=== PATIENT | male | born 1945 | race Two or more races ===

== ENCOUNTER → 2016-12-17 | Outpatient (CLI) | payer BC, MEDICARE ==
--- NOTE | 2016-12-17 14:25 | REP ---
Chest two views HISTORY: Cough Comparison: 07/05/2016 The lungs are clear. The cardiac silhouette is enlarged. The pulmonary vasculature is normal in appearance. The bony structure is intact. A cardiac pacemaker is present. IMPRESSION: Cardiomegaly.
== END ==
LOC: M CLY 13:52
PROVIDERS: ATTEND Family Medicine
DX: R05 Cough (principal); I51.7 Cardiomegaly

== ENCOUNTER → 2017-02-04 | Outpatient (REF) | payer MEDICARE ==
[2017-02-04 16:52] LABS: ALBUMIN 3.9 GM/DL (3.2-5.2); ALKALINE PHOSPHATASE 109 U/L (45-117); ALT/SGPT 28 U/L (12-78); ANION GAP 3 MEQ/L (8-16); AST/SGOT 18 U/L (15-37); BILIRUBIN,TOTAL 0.8 MG/DL (0.2-1.0); BLOOD UREA NITROGEN 17 MG/DL (7-18); CALCIUM LEVEL 8.9 MG/DL (8.8-10.2); CARBON DIOXIDE LEVEL 33 MEQ/L (21-32); CHLORIDE LEVEL 106 MEQ/L (98-107); CHOLESTEROL LEVEL 167 MG/DL (<200); CREATININE FOR GFR 0.83 MG/DL (0.70-1.30); GLOMERULAR FILTRATION RATE > 60.0 (>42); GLUCOSE, FASTING 117 MG/DL (83-110); POTASSIUM SERUM 4.2 MEQ/L (3.5-5.1); SODIUM LEVEL 142 MEQ/L (136-145); TOTAL PROTEIN 6.9 GM/DL (6.4-8.2); TRIGLYCERIDES LEVEL 119 MG/DL (<150)
== END ==
LOC: M SFHCCLAY 11:04
PROVIDERS: ATTEND Family Medicine
DX: E78.2 Mixed hyperlipidemia (principal); R73.01 Impaired fasting glucose; N13.8 Other obstructive and reflux uropathy; N40.1 Benign prostatic hyperplasia with lower urinary tract symptoms
CPT/HCPCS: 80053; 80061; 83036; G0103; G0463

== ENCOUNTER → 2017-07-19 | Outpatient (CLI) | payer MEDICARE ==
--- NOTE | 2017-07-19 12:39 | REP ---
Chest two views HISTORY: Cough Comparison: 12/17/1969 The lungs are clear. The cardiac silhouette is enlarged. The pulmonary vasculature is normal in appearance. The bony structure is intact. A cardiac pacemaker is present. IMPRESSION: Cardiomegaly.
== END ==
LOC: M CLY 11:43
PROVIDERS: ATTEND Family Medicine
DX: R05 Cough (principal); I51.7 Cardiomegaly
CPT/HCPCS: 71020; 80053; 85025; 87804; G0463

== ENCOUNTER → 2017-07-19 | Outpatient (REF) | payer MEDICARE ==
[2017-07-19 17:14] LABS: ALBUMIN 3.7 GM/DL (3.2-5.2); ALBUMIN/GLOBULIN RATIO 1.32 (1.00-1.93); ALKALINE PHOSPHATASE 110 U/L (45-117); ALT/SGPT 25 U/L (12-78); ANION GAP 6 MEQ/L (8-16); AST/SGOT 14 U/L (15-37); BILIRUBIN,TOTAL 0.7 MG/DL (0.2-1.0); BLOOD UREA NITROGEN 15 MG/DL (7-18); CARBON DIOXIDE LEVEL 30 MEQ/L (21-32); CHLORIDE LEVEL 105 MEQ/L (98-107); CREATININE FOR GFR 0.88 MG/DL (0.70-1.30); GLOMERULAR FILTRATION RATE > 60.0 (>42); GLUCOSE, FASTING 94 MG/DL (83-110); POTASSIUM SERUM 4.4 MEQ/L (3.5-5.1); SODIUM LEVEL 141 MEQ/L (136-145); TOTAL PROTEIN 6.5 GM/DL (6.4-8.2)
[2017-07-19 17:36] LABS: BASO % 0.2 % (0.0-1.0); EOS # 0.4 10^3/uL (0.0-0.50); EOS % 3.5 % (0.0-3.0); LYMPH # 1.9 10^3/uL (1.5-4.5); LYMPH % 19.5 % (24.0-44.0); MEAN CORPUSCULAR HEMOGLOBIN 31.7 pg (27.0-33.0); MEAN CORPUSCULAR VOLUME 93.1 fl (80.0-96.0); MONO % 10.1 % (0.0-5.0); NEUTROPHILS # 6.5 10^3/uL (1.8-7.7); NEUTROPHILS % 65.7 % (36.0-66.0); PLATELET COUNT, AUTOMATED 173 10^3/uL (150-450); WHITE BLOOD COUNT 9.9 10^3/uL (4.0-10.0)
== END ==
LOC: M SFHCCLAY 11:40
PROVIDERS: ATTEND Family Medicine
DX: R05 Cough (principal)

== ENCOUNTER → 2017-11-28 | Outpatient (CLI) | payer MEDICARE | LOC: M SLEEP 19:20 | DX: G47.33 Obstructive sleep apnea (adult) (pediatric) (principal) | CPT/HCPCS: 95811 ==

== ENCOUNTER 2019-03-01 05:44 | Inpatient (IN) | payer MEDICARE, OTHER ==
[~2019-03-01] VITALS: Ht 172.7 cm; Wt 120.8 kg
[2019-03-01] MEDS ORDERED: RAMI1CAP26 PO (06:00)
[2019-03-01] MEDS ORDERED: AMLO5TAB6 PO (06:00)
[2019-03-01] MEDS ORDERED: CIDA500T2 PO (06:00)
[2019-03-01] MEDS ORDERED: ASPI81CH33 PO (06:00)
[2019-03-01] MEDS ORDERED: SIMV10TA2 PO (06:00)
[2019-03-01] MEDS ORDERED: TAMS1CAP17 PO (06:00)
[2019-03-01] MEDS ORDERED: CARV25TA PO (06:00)
[2019-03-01 06:27] LABS: BASO # 0.1 10^3/uL (0.0-0.2); BASO % 0.7 % (0.0-1.0); EOS # 0.1 10^3/uL (0.0-0.50); EOS % 0.9 % (0.0-3.0); HEMATOCRIT 38.3 % (42.0-52.0); HEMOGLOBIN 13.2 g/dl (13.5-17.5); LYMPH # 1.1 10^3/uL (1.5-4.5); LYMPH % 12.7 % (24.0-44.0); MEAN CORPUSCULAR HEMOGLOBIN 31.8 pg (27.0-33.0); MEAN CORPUSCULAR HGB CONC 34.5 g/dl (32.0-36.5); MEAN CORPUSCULAR VOLUME 92.3 fl (80.0-96.0); MONO # 0.7 10^3/uL (0.0-0.8); MONO % 8.4 % (0.0-5.0); NEUTROPHILS # 6.5 10^3/uL (1.8-7.7); NEUTROPHILS % 76.7 % (36.0-66.0); PLATELET COUNT, AUTOMATED 143 10^3/uL (150-450); RED BLOOD COUNT 4.15 10^6/uL (4.30-6.10); WHITE BLOOD COUNT 8.5 10^3/uL (4.0-10.0)
[2019-03-01 07:08] LABS: ALBUMIN 3.7 GM/DL (3.2-5.2); ALT/SGPT 50 U/L (12-78); BILIRUBIN,DIRECT 0.5 MG/DL (0.0-0.2); BLOOD UREA NITROGEN 19 MG/DL (7-18); CALCIUM LEVEL 8.7 MG/DL (8.8-10.2); CARBON DIOXIDE LEVEL 25 MEQ/L (21-32); CHLORIDE LEVEL 108 MEQ/L (98-107); CPK CREATINE PHOSPHOKINASE 139 U/L (39-308); CREATININE FOR GFR 0.96 MG/DL (0.70-1.30); GLOMERULAR FILTRATION RATE > 60.0 (>42); GLUCOSE, FASTING 171 MG/DL (70-100); LIPASE 18476 U/L (73-393); MB/CK RELATIVE INDEX 0.94 (< OR =4); POTASSIUM SERUM 4.1 MEQ/L (3.5-5.1); SODIUM LEVEL 142 MEQ/L (136-145); TOTAL PROTEIN 6.2 GM/DL (6.4-8.2); TROPONIN I < 0.02 NG/ML (< 0.10)
[2019-03-01] MEDS ORDERED: NS 1,000 ML IV ONE (07:30)
--- NOTE | 2019-03-01 07:46 | REP ---
Clinical: Abdominal pain. Comparison: 07/19/2017. Findings: Mediastinum and cardiac silhouette are stable with pacemaker again identified. Trace left basilar fibroatelectatic changes noted. No consolidation, effusion, or pneumothorax. Skeletal structures intact. Impression: Cannot exclude trace left basilar fibroatelectatic change. Electronically Signed by Carlos Cook MD 03/01/2019 07:38 A
[2019-03-01] MEDS ORDERED: ISOVUE-370 76% 100ML VIAL (Q9967) As Ordered ONE (07:50)
--- NOTE | 2019-03-01 08:20 | REP ---
Clinical: Abdominal pain with elevated lipase levels. Technique: Axial contrast enhanced images from the lung bases to the pubic symphysis with coronal and sagittal re-formations using 100 ml Isovue 370 intravenous contrast material. Findings: Moderate peripancreatic inflammatory stranding is consistent with acute pancreatitis. No drainable collection/abscess or pseudocyst noted. The gallbladder demonstrates small amount of gravel without pericholecystic fluid to suggest acute cholecystitis. Liver demonstrates diffuse fatty infiltration. Spleen, bilateral adrenal glands and kidneys are normal. Enteric system is without obstruction or acute inflammatory process. Normal terminal ileum and appendix identified in the right lower quadrant. Few scattered sigmoid diverticula noted without acute diverticulitis. Pelvis demonstrates normal bladder and mildly prominent prostate gland. No ascites. No free air. No retroperitoneal adenopathy. Abdominal aorta without aneurysm or dissection. Musculoskeletal structures demonstrate degenerative changes without focal osseous abnormality. Lung bases demonstrate minimal left basilar atelectasis. Impression: 1. Acute Pancreatitis. No drainable collection/abscess or pseudocyst. 2. Small amount of gravel in the gallbladder without evidence for acute cholecystitis. 3. Hepatic steatosis. Electronically Signed by Carlos Cook MD 03/01/2019 08:12 A
--- NOTE | 2019-03-01 08:40 | REP ---
Clinical: Pancreatitis. Technique: Real time loredo scale ultrasound examination using curved array transducer. Findings: The gallbladder demonstrates small mobile gallstones and a small amount of pericholecystic fluid cannot definitively be excluded. No wall thickening or definite biliary ductal dilatation is appreciated. However, the common bile duct is identified measuring up to 6.1 mm and there are suggestions for a 5.5 mm choledocholith. There is fatty infiltration to the liver noted without focal hepatic lesion. The pancreas is incompletely evaluated due to interposed bowel gas. The right kidney demonstrates increased central sinus fat consistent with age-related changes and measures 12.0 x 6.1 x 5.6 cm without hydronephrosis. No ascites. Impression: 1. Cholelithiasis and possible choledochal with. Very minimal pericholecystic fluid cannot be excluded. 2. Hepatic steatosis. Electronically Signed by Carlos Cook MD 03/01/2019 08:32 A
[2019-03-01] MEDS ORDERED: CART1TAB2 PO (08:46)
[2019-03-01] MEDS ORDERED: PEPC1TAB5 PO (08:46)
[2019-03-01] MEDS ORDERED: PEPT262C2 PO (08:46)
[2019-03-01] MEDS ORDERED: ASPI81TA26 PO (08:46)
[2019-03-01] MEDS ORDERED: MULTCAP PO (08:46)
[2019-03-01] MEDS ORDERED: LR 1,000 ML IV SCH ×2 (09:45→13:45)
[2019-03-01] MEDS ORDERED: ACETAMINOPHEN TAB 650MG DOSE (2X325MG) PO PRN (09:45)
--- NOTE | 2019-03-01 10:08 | ECGEPIP ---
[facility] - ED Test Date: 2019-03-01 Pat Name: SHAWN CLINE Department: Room: - Gender: Male Asset Analyst: gokul : 1945 Requested By: Analilia Keenan Order Number: [id number] Reading MD: Analilia Keenan Measurements Intervals [place] Rate: 77 P: 15 MA: 161 QRS: 260 QRSD: 155 T: QT: 416 QTc: 473 Interpretive Statements ELECTRONIC VENTRICULAR PACEMAKER MARKED ST DEPRESSION, CONSIDER SUBENDOCARDIAL INJURY CW 07/06/[address] T WAVE CHAGNES Electronically Signed on 03-01-2019 10:08:11 EDT by Analilia Keenan
[2019-03-01] MEDS: MEROPENEM INJ 1 GM in APPROPRIATE DILUENT 1 EA IV SCH ×2 (10:10→17:40)
[2019-03-01] MEDS ORDERED: PROPOFOL 200 MG/20 ML VIAL As Ordered ONE (11:48)
[2019-03-01] MEDS ORDERED: LIDOCAINE 2% INJ 100 MG/5 ML SDV (FOR ANES.) As Ordered ONE (11:48)
[2019-03-01] MEDS ORDERED: ONDANSETRON 4MG/2ML VIAL (J2405) As Ordered ONE (11:49)
[2019-03-01] MEDS ORDERED: dexameTHASONE 4 MG/ML 1ML VIAL (J1100) As Ordered ONE (11:49)
[2019-03-01] MEDS ORDERED: MIDAZOLAM INJ 2 MG/2 ML VIAL (J2250) As Ordered ONE (11:49)
[2019-03-01] MEDS ORDERED: ROCURONIUM BROMIDE 50 MG/5 ML VIAL As Ordered ONE (11:49)
[2019-03-01] MEDS ORDERED: SUGAMMADEX SODIUM 500 MG/5 ML VIAL (BRIDION) As Ordered ONE (11:49)
[2019-03-01] MEDS ORDERED: fentaNYL 100 MCG/2 ML INJECTION (J3010) As Ordered ONE (11:50)
[2019-03-01] MEDS ORDERED: GLUCAGON FOR INJ 1 MG VIAL (J1610) As Ordered ONE (12:03)
[2019-03-01] MEDS ORDERED: ISOVUE-300 61% 50ML VIAL (Q9967) As Ordered ONE (12:08)
--- NOTE | 2019-03-01 13:34 | REP ---
Clinical: ERCP. Technique: Intraoperative fluoroscopic imaging. Findings: Images from ERCP examination demonstrate relatively normal common bile duct and visualized portion of the cystic duct. Small filling defect in the distal common bile duct may represent small stones or air bubble. Total fluoroscopic time 1 minute 10 seconds. Impression: No significant obstructing choledocholiths identified. Electronically Signed by Carlos Cook MD 03/01/2019 01:26 P
--- NOTE | 2019-03-01 13:37 | ROOR ---
Patient Name: Dillon Aleman Procedure Date: 03/01/2019 12:27 PM Date of : 1945 Age: 73 Room: Main OR Gender: Male Note Status: Finalized Procedure: ERCP + Papillotomy + Balloon Sweep Indications: Abdominal pain of suspected biliary origin, Acute pancreatitis, For therapy of acute pancreatitis, Acute pancreatitis suspected due to gallstone Providers: Dillon Jurado MD Referring MD: 2. Inpatient 2. Inpatient Requesting Provider: Medicines: Monitored Anesthesia Care Complications: No immediate complications. Procedure: Pre-Anesthesia Assessment: - The heart rate, respiratory rate, oxygen saturations, blood pressure, adequacy of pulmonary ventilation, and response to care were monitored throughout the procedure. The Duodenoscope was introduced through the mouth, and advanced to the duodenum and used to inject contrast into the bile duct. The ERCP was accomplished without difficulty. The patient tolerated the procedure well. Findings: The upper GI tract was traversed under direct vision without detailed examination. The major papilla was normal. A short 0.035 inch Soft Jagwire was passed into the biliary tree. The short-nosed traction sphincterotome was passed over the guidewire and the bile duct was then deeply cannulated. Contrast was injected. I personally interpreted the bile duct images. Ductal flow of contrast was adequate. Image quality was adequate. Contrast extended to the entire biliary tree. The hepatic duct bifurcation was borderline dilated, uncertain etiology. Biliary sphincterotomy was made with a monofilament traction (standard) sphincterotome using ERBE electrocautery. There was no post-sphincterotomy bleeding. The biliary tree was swept with a 12 mm balloon starting at the bifurcation. Debris was swept from the duct. Impression: - The biliary system was borderline dilated, uncertain etiology. - A biliary sphincterotomy was performed. - The biliary tree was swept and debris was found. - The examination was otherwise normal. Recommendation: - Avoid aspirin and nonsteroidal anti-inflammatory medicines for 2 weeks. - Return patient to [facility] for [facility] care. - Watch for pancreatitis, bleeding, perforation, and cholangitis. - The findings and recommendations were discussed with the patient and their family. Dillon Jurado MD Dillon Jurado MD 03/01/2019 1:37:07 PM Electronically signed by Dillon Jurado MD Number of Addenda: 0 Note Initiated On: 03/01/2019 12:27 PM Estimated Blood Loss: Estimated blood loss: none.
[2019-03-01] MEDS ORDERED: NORCO, ANEXSIA 5/325MG TABLET (HYDROcodone/ACETAMINOPHEN) PO PRN (13:45)
[2019-03-01] MEDS ORDERED: ONDANSETRON 4MG/2ML VIAL (J2405) IV PRN (13:45)
[2019-03-01] MEDS ORDERED: fentaNYL 100 MCG/2 ML INJECTION (J3010) IV PRN (13:45)
[2019-03-01 14:20] VITALS: BP 133/82
[2019-03-01 16:00] VITALS: BP 173/81
[2019-03-01] MEDS ORDERED: FAMOTIDINE 20 MG TAB PO PRN (16:30)
[2019-03-01] MEDS: amLODIPine 5 MG TAB PO SCH (17:39)
[2019-03-01] MEDS: NS 1,000 ML IV SCH (17:39)
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
[2019-03-01 19:30] VITALS: BP 180/90
[2019-03-01] MEDS: CARVedilol 12.5 MG TAB PO SCH (20:01)
[2019-03-01] MEDS ORDERED: TAMSULOSIN 0.4 MG CAP PO SCH (21:00)
[2019-03-01] MEDS ORDERED: RAMIPRIL 5 MG CAP PO SCH (21:00)
[2019-03-01] MEDS ORDERED: SIMVASTATIN 10 MG TAB PO SCH (21:00)
[2019-03-01 21:50] VITALS: BP 150/80
[2019-03-01 23:59] VITALS: BP 160/74
[2019-03-02] MEDS: MEROPENEM INJ 1 GM in APPROPRIATE DILUENT 1 EA IV SCH ×2 (02:04→09:01)
[2019-03-02 04:00] VITALS: BP 159/79
[2019-03-02] MEDS: NS 1,000 ML IV SCH (04:26)
[2019-03-02 05:38] LABS: HEMATOCRIT 37.1 % (42.0-52.0); HEMOGLOBIN 12.6 g/dl (13.5-17.5); MEAN CORPUSCULAR HEMOGLOBIN 31.3 pg (27.0-33.0); MEAN CORPUSCULAR VOLUME 92.1 fl (80.0-96.0); PLATELET COUNT, AUTOMATED 155 10^3/uL (150-450); RED BLOOD COUNT 4.03 10^6/uL (4.30-6.10); WHITE BLOOD COUNT 8.9 10^3/uL (4.0-10.0)
[2019-03-02 06:08] LABS: ALBUMIN 3.5 GM/DL (3.2-5.2); ALT/SGPT 49 U/L (12-78); BILIRUBIN,TOTAL 1.1 MG/DL (0.2-1.0); BLOOD UREA NITROGEN 9 MG/DL (7-18); CALCIUM LEVEL 8.3 MG/DL (8.8-10.2); CARBON DIOXIDE LEVEL 28 MEQ/L (21-32); CHLORIDE LEVEL 106 MEQ/L (98-107); CHOLESTEROL LEVEL 127 MG/DL (<200); CHOLESTEROL RISK RATIO 2.396 (<5); CREATININE FOR GFR 0.74 MG/DL (0.70-1.30); GLOMERULAR FILTRATION RATE > 60.0 (>42); GLUCOSE, FASTING 126 MG/DL (70-100); HDL CHOLESTEROL 53 MG/DL (>40); LDL CHOLESTEROL 59 MG/DL (<100); LIPASE 696 U/L (73-393); NON-HDL-C 74 MG/DL; POTASSIUM SERUM 3.6 MEQ/L (3.5-5.1); SODIUM LEVEL 141 MEQ/L (136-145); TOTAL PROTEIN 6.4 GM/DL (6.4-8.2); TRIGLYCERIDES LEVEL 75 MG/DL (<150)
[2019-03-02 08:00] VITALS: BP 179/77
[2019-03-02] MEDS ORDERED: MULTIVITAMINS/MINERALS THERAP 1 TAB PO SCH (09:00)
[2019-03-02 09:01] VITALS: BP 179/77
[2019-03-02] MEDS: CARVedilol 12.5 MG TAB PO SCH (09:01)
[2019-03-02] MEDS: amLODIPine 5 MG TAB PO SCH (09:01)
--- NOTE | 2019-03-02 09:58 | CR ---
DATE OF CONSULTATION: 03/01/2019 This is a 73-year white male, who was admitted to [facility] ([facility]) last evening due to a sudden onset at 1 o'clock in the morning of acute epigastric abdominal pain. The patient's pain apparently lasted for approximately 3 hours. No complaints of fevers, night sweats or shaking chills. The patient describes a similar episode a year or two ago. The patient was brought into the emergency room and laboratory studies showed a lipase of 18,476. The patient's complete blood count (CBC) was normal. The patient had imaging studies, including a CAT scan of the abdomen and pelvis, which showed pancreatitis, but no biliary dilatation. There was suggestion on CT the patient had gravel or small sludge in the gallbladder. The ultrasound of the gallbladder on 03/01/2019 again showed cholelithiasis and a suggestion of a 5.5 mm choledocholithiasis stones. The patient's common bile duct (CBD) was 6.1 mm. In 2016, the common bile duct was measured at 4.5 mm in size. The patient also has fatty liver noted on scans. Past medical history that is pertinent: The patient has a pacemaker defibrillator, which will have to turned off using magnets. Generally, he is a well-developed, well-nourished white male, slightly obese, in no acute distress. Appears stated age. The patient's pain has apparently resolved. Chest is clear. Cardiovascular exam showed a regular rhythm. No murmurs or gallops. Normal physiological split S1 and S2. Abdomen is soft, nontender. No masses, guarding, rebound, hepatosplenomegaly. Bowel sounds positive. ANALYSIS: Possible gallstone pancreatitis. The patient's liver functions are normal. We are proceeding with the endoscopic retrograde cholangiopancreatography (ERCP) due to the ultrasound suggesting a common bile duct stone. We are unable to perform a magnetic resonance cholangiopancreatography (MRCP) due to the patient having a pacemaker defibrillator. The ERCP was explained to the patient with the following risks but not limited to pancreatitis bleeding, complications, perforation, emergency surgery, and infection. Prolonged hospitalization has all been discussed. There is no other alternative procedure at this time. PLAN: ERCP, papillotomy balloon sweep, if necessary a stent may be needed, at this point unable to remove the stone from the CBD.
[2019-03-02] MEDS ORDERED: HEPARIN SOD (PORCINE) 5000 UNITS/ML VIAL SC SCH (12:00)
[2019-03-02] MEDS ORDERED: CEFD300CAP PO (12:01)
[2019-03-02] MEDS ORDERED: FLAG500T PO (12:01)
--- NOTE | 2019-03-02 16:22 | DS.PDOC ---
Discharge Summary General Date of Admission Mar 01, 2019 at 09:44 Date of Discharge 03/02/19 Specialist/Consultants Involve Dr. Jurado of GI Discharge Summary PROCEDURES PERFORMED DURING STAY:s/p ERCP on 03/01/[address] Jurado of GI ADMITTING/DISCHARGE DIAGNOSES: Acute Pancreatitis, r/o choledocholithiasis s/p ERCP Hx of Cardiomyopathy with an EF of 25-30% s/p AICD, PPM Hypertension Dyslipidemia GERD BPH COMPLICATIONS/CHIEF COMPLAINT: Pancreatitis. HISTORY OF PRESENT ILLNESS: . 73-year-old male with past medical history of hypertension, dyslipidemia, BPH, impaired fasting glucose, and cardiomyopathy with an ejection fraction of 25-30% diagnosed 10 years ago s/p PPM/AICD with improvement of ejection fraction to 55% according to the patient presented to the ER with a chief complaint of an episode of abdominal pain. The patient states that he woke up at 4:00 this morn ing with abdominal pain and had two associated nonbloody/nonbilious episodes of emesis. The patient reports that his abdominal pain resolved thereafter. However, he still felt some pain radiating around the torso as the back. He denies any associated fevers, chills, chest pain, palpitations, shortness of breath, lower extremity swelling, PND, orthopnea, recent travel, sick contacts, or ingestion of any foreign foods. In the ER, lab work was notable for a lipase level of greater than 18,000, and slightly elevated direct bilirubin and AST levels. In addition, a CT scan of the abdomen/pelvis was notable for acute pancreatitis with no drainable collection/abscess or pseudocyst. An ultrasound of the gallbladder was done and revealed cholelithiasis and possible choledocholithiasis. The patient will be admitted to the hospitalist service, and a consult has been placed a GI for an ERCP. During hospitalization, the patient underwent an ERCP. The biliary system was borderline dilated due to uncertain etiology. A biliary sphincterotomy was performed and the biliary tree was swept and agrees were found. Following the procedure the patient's clinical condition remained stable. He has been able to tolerate a by mouth diet without any acute complaints following the procedure. The patient's lipase level has significantly decreased to 696 from 18,000 this morning. The patient's LFTs have also remained stable. He denies any acute complaints of nausea, vomiting, abdominal pain, or any diarrhea. Given the patient's clinical improvement, and eagerness to go home, we will discharge the patient. I've advised the patient to follow-up with his primary care physician within 7 days. He has been advised to avoid aspirin/NSAIDs for 2 weeks. He has been counseled to return to the ER for any acute emergencies. DISCHARGE MEDICATIONS: Please see below. ALLERGIES: Please see below. PHYSICAL EXAMINATION ON DISCHARGE: VITAL SIGNS: Please see below. General Exam: Positive: Alert, Cooperative, No Acute Distress ENT Exam: Positive: Atraumatic, Mucous membr. moist/pink Chest Exam: Positive: Clear to auscultation, Normal air movement Heart Exam: Positive: Rate Normal, Normal S1, Normal S2 Abdomen Exam: Positive: Soft; Negative: Tenderness Extremity Exam: Negative: Tenderness, Swelling Psych Exam: Positive: Oriented x 3 LABORATORY DATA: Please see below. IMAGING: Clinical: Abdominal pain. Comparison: 07/19/2017. Findings: Mediastinum and cardiac silhouette are stable with pacemaker again identified. Trace left basilar fibroatelectatic changes noted. No consolidation, effusion, or pneumothorax. Skeletal structures intact. Impression: Cannot exclude trace left basilar fibroatelectatic change. ADDENDUM: The impression should read: 1. Cholelithiasis and possible choledocholith. Very minimal pericholecystic fluid cannot be excluded. 2. Hepatic steatosis. DD: Carlos Cook MD 03/01/19 1324 DT: ANH 03/02/19 0715 DS: [~ rep ct labl] Clinical: Pancreatitis. Technique: Real time loredo scale ultrasound examination using curved array transducer. Findings: The gallbladder demonstrates small mobile gallstones and a small amount of pericholecystic fluid cannot definitively be excluded. No wall thickening or definite biliary ductal dilatation is appreciated. However, the common bile duct is identified measuring up to 6.1 mm and there are suggestions for a 5.5 mm choledocholith. There is fatty infiltration to the liver noted without focal hepatic lesion. The pancreas is incompletely evaluated due to interposed bowel gas. The right kidney demonstrates increased central sinus fat consistent with age-related changes and measures 12.0 x 6.1 x 5.6 cm without hydronephrosis. No ascites. Impression: 1. Cholelithiasis and possible choledochal with. Very minimal pericholecystic fluid cannot be excluded. 2. Hepatic steatosis. Clinical: Abdominal pain with elevated lipase levels. Technique: Axial contrast enhanced images from the lung bases to the pubic symphysis with coronal and sagittal re-formations using 100 ml Isovue 370 intravenous contrast material. Findings: Moderate peripancreatic inflammatory stranding is consistent with acute pancreatitis. No drainable collection/abscess or pseudocyst noted. The gallbladder demonstrates small amount of gravel without pericholecystic fluid to suggest acute cholecystitis. Liver demonstrates diffuse fatty infiltration. Spleen, bilateral adrenal glands and kidneys are normal. Enteric system is without obstruction or acute inflammatory process. Normal terminal ileum and appendix identified in the right lower quadrant. Few scattered sigmoid diverticula noted without acute diverticulitis. Pelvis demonstrates normal bladder and mildly prominent prostate gland. No ascites. No free air. No retroperitoneal adenopathy. Abdominal aorta without aneurysm or dissection. Musculoskeletal structures demonstrate degenerative changes without focal osseous abnormality. Lung bases demonstrate minimal left basilar atelectasis. Impression: 1. Acute Pancreatitis. No drainable collection/abscess or pseudocyst. 2. Small amount of gravel in the gallbladder without evidence for acute cholecystitis. 3. Hepatic steatosis. Procedure: ERCP + Papillotomy + Balloon Sweep Indications: Abdominal pain of suspected biliary origin, Acute pancreatitis, For therapy of acute pancreatitis, Acute pancreatitis suspected due to gallstone Providers: Dillon Jurado MD Referring MD: 2. Inpatient 2. Inpatient Requesting Provider: Medicines: Monitored Anesthesia Care Complications: No immediate complications. Procedure: Pre-Anesthesia Assessment: - The heart rate, respiratory rate, oxygen saturations, blood pressure, adequacy of pulmonary ventilation, and response to care were monitored throughout the procedure. The Duodenoscope was introduced through the mouth, and advanced to the duodenum and used to inject contrast into the bile duct. The ERCP was accomplished without difficulty. The patient tolerated the procedure well. Findings: The upper GI tract was traversed under direct vision without detailed examination. The major papilla was normal. A short 0.035 inch Soft Jagwire was passed into the biliary tree. The short-nosed traction sphincterotome was passed over the guidewire and the bile duct was then deeply cannulated. Contrast was injected. I personally interpreted the bile duct images. Ductal flow of contrast was adequate. Image quality was adequate. Contrast extended to the entire biliary tree. The hepatic duct bifurcation was borderline dilated, uncertain etiology. Biliary sphincterotomy was made with a monofilament traction (standard) sphincterotome using ERBE electrocautery. There was no post-sphincterotomy bleeding. The biliary tree was swept with a 12 mm balloon starting at the bifurcation. Debris was swept from the duct. Impression: - The biliary system was borderline dilated, uncertain etiology. - A biliary sphincterotomy was performed. - The biliary tree was swept and debris was found. - The examination was otherwise normal. Recommendation: - Avoid aspirin and nonsteroidal anti-inflammatory medicines for 2 weeks. - Return patient to [facility] care. - Watch for pancreatitis, bleeding, perforation, and cholangitis. - The findings and recommendations were discussed with the patient and their family. PROGNOSIS: Fair ACTIVITY: As tolerated. DIET: As tolerated DISCHARGE PLAN: DISPOSITION: . Home DISCHARGE INSTRUCTIONS: I've advised the patient to follow-up with his primary care physician within 7 days. He has been advised to avoid aspirin/NSAIDs for 2 weeks. He has been couns eled to return to the ER for any acute emergencies. DISCHARGE CONDITION: Stable. TIME SPENT ON DISCHARGE: Greater than 30 minutes. Vital Signs/I&Os Vital Signs Date Time Temp Pulse Resp B/P (MAP) Pulse Ox O2 Delivery O2 Flow Rate FiO2 03/02/19 09:01 76 179/77 03/02/19 08:00 98.3 17 95 03/02/19 06:00 Nasal Cannula 2.0 I&O- Last 24 Hours up to 6 AM 03/02/19 06:00 Intake Total 5220 ml Output Total 2750 ml Balance 2470 ml Laboratory Data Labs 24H Laboratory Tests 2 03/02/19 05:06: Nucleated Red Blood Cells % (auto) 0.0, Anion Gap 7L, Glomerular Filtration Rate > 60.0, Blood Urea Nitrogen 9#, Creatinine 0.74, Sodium Level 141, Potassium Level 3.6, Chloride Level 106, Carbon Dioxide Level 28, Calcium Level 8.3L, Aspartate Amino Transf (AST/SGOT) 31, Alanine Aminotransferase (ALT/SGPT) 49, Alkaline Phosphatase 89, Total Bilirubin 1.1H, Triglycerides Level 75, LDL Cholesterol 59, Total Protein 6.4, Albumin 3.5, Magnesium Level 2.0, Albumin/Globulin Ratio 1.21, Total Cholesterol 127, Non-HDL Cholesterol (LDL + VLDL) 74, Total HDL Cholesterol 53, Cholesterol/HDL Ratio 2.396, Lipase 696H CBC/BMP Laboratory Tests 03/02/19 05:06 Red Blood Count 4.03 L, Mean Corpuscular Volume 92.1, Mean Corpuscular Hemoglobin 31.3, Mean Corpuscular Hemoglobin Concent 34.0, Red Cell Distribution Width 12.2, Calcium Level 8.3 L, Aspartate Amino Transf (AST/SGOT) 31, Alanine Aminotransferase (ALT/SGPT) 49, Alkaline Phosphatase 89, Total Bilirubin 1.1 H, Triglycerides Level 75, LDL Cholesterol 59, Total Protein 6.4, Albumin 3.5 Discharge Medications Scheduled Amlodipine Besylate (Amlodipine Besylate) 5 Mg Tablet, 5 MG PO DAILY, (Reported) Cartilage/Collagen/Bor/Hyalur (Move Free Ultra Tablet) 1 Each Tablet, 2 TAB PO DAILY, (Reported) Carvedilol (Carvedilol) 25 Mg Tablet, 25 MG PO BID, (Reported) Cefdinir (Cefdinir) 300 Mg Capsule, 1 CAP PO BID Metronidazole (Flagyl) 500 Mg Tablet, 500 MG PO Q8H FOR 10 DAYS Multivitamin (Multivitamins) 1 Each Capsule, 1 CAP PO DAILY, (Reported) Ramipril (Ramipril) 10 Mg Capsule, 20 MG PO QHS, (Reported) Simvastatin (Simvastatin) 10 Mg Tablet, 10 MG PO QHS, (Reported) Tamsulosin Hcl (Tamsulosin HCl) 0.4 Mg Capsule, 0.8 MG PO QHS, (Reported) Scheduled PRN Bismuth Subsalicylate (Pepto-Bismol) 262 Mg Tab.chew, 524 MG PO PRN PRN for HEARTBURN/INDIGESTION, (Reported) Famotidine (Pepcid) 20 Mg Tablet, 20 MG PO DAILY PRN for HEARTBURN/INDIGESTION, (Reported) Allergies Coded Allergies: No Known Allergies (Unverified , 03/01/19) PATRICIO TAY MD Mar 02, 2019 16:22
== END 2019-03-02 13:32 | disposition home or self-care (01) | DRG 444 ==
LOC: M ED 05:44 → M ED INP 09:44 → M PCU 11:30
PROVIDERS: ADMIT Internal Medicine; ATTEND Internal Medicine
PROC: 0FC98ZZ Extirpation of Matter from Common Bile Duct, Via Natural or Artificial Opening Endoscopic (ICD-10-PCS; principal; 2019-03-01 11:42)
DX: K80.50 Calculus of bile duct without cholangitis or cholecystitis without obstruction (principal); K85.90 Acute pancreatitis without necrosis or infection, unspecified; I10 Essential (primary) hypertension; E78.5 Hyperlipidemia, unspecified; N40.0 Benign prostatic hyperplasia without lower urinary tract symptoms; K21.9 Gastro-esophageal reflux disease without esophagitis; R73.01 Impaired fasting glucose; Z95.810 Presence of automatic (implantable) cardiac defibrillator; Z79.82 Long term (current) use of aspirin; Z79.899 Other long term (current) drug therapy; Z96.653 Presence of artificial knee joint, bilateral; Z87.81 Personal history of (healed) traumatic fracture; K82.8 Other specified diseases of gallbladder

== ENCOUNTER → 2019-03-09 | Outpatient (REF) | payer MEDICARE ==
[~2019-03-09] MED LIST: AMLO5TAB6 PO; ASPI81CH33 PO; ASPI81TA26 PO; CART1TAB2 PO; CARV25TA PO; CEFD300CAP PO; CIDA500T2 PO; FLAG500T PO; MULTCAP PO; PEPC1TAB5 PO; PEPT262C2 PO; RAMI1CAP26 PO; SIMV10TA2 PO; TAMS1CAP17 PO
[2019-03-09 16:51] LABS: ALBUMIN 3.9 GM/DL (3.2-5.2); ALT/SGPT 40 U/L (12-78); BILIRUBIN,TOTAL 0.8 MG/DL (0.2-1.0); BLOOD UREA NITROGEN 11 MG/DL (7-18); CALCIUM LEVEL 9.1 MG/DL (8.8-10.2); CARBON DIOXIDE LEVEL 28 MEQ/L (21-32); CHLORIDE LEVEL 106 MEQ/L (98-107); CREATININE FOR GFR 0.93 MG/DL (0.70-1.30); GLOMERULAR FILTRATION RATE > 60.0 (>42); GLUCOSE, FASTING 125 MG/DL (70-100); LIPASE 111 U/L (73-393); POTASSIUM SERUM 3.9 MEQ/L (3.5-5.1); SODIUM LEVEL 141 MEQ/L (136-145); TOTAL PROTEIN 6.7 GM/DL (6.4-8.2)
== END ==
LOC: M SFHCCLAY 13:46
PROVIDERS: ATTEND Family Medicine
DX: K85.90 Acute pancreatitis without necrosis or infection, unspecified (principal)

== ENCOUNTER 2019-04-23 08:32 | Day surgery (SDC) | payer OTHER ==
[~2019-04-23] VITALS: Ht 172.7 cm; Wt 122.5 kg
[~2019-04-23 08:32] MED LIST changes: +BUPIVACAINE HCL 0.25% 30 ML VIAL As Ordered ONE; +LR 1,000 ML IV SCH; -SIMV10TA2 PO; +SIMV10TA21 PO
[2019-04-23] MEDS ORDERED: fentaNYL 250 MCG/5 ML INJECTION (J3010) As Ordered ONE (08:35)
[2019-04-23] MEDS ORDERED: propofoL 200 MG/20 ML VIAL As Ordered ONE (08:35)
[2019-04-23] MEDS ORDERED: ROCURONIUM BROMIDE 50 MG/5 ML VIAL As Ordered ONE ×2 (08:35→11:30)
[2019-04-23] MEDS ORDERED: MIDAZOLAM INJ 2 MG/2 ML VIAL (J2250) As Ordered ONE (08:35)
[2019-04-23] MEDS ORDERED: LIDOCAINE 2% INJ 100 MG/5 ML SDV (FOR ANES.) As Ordered ONE (08:35)
[2019-04-23] MEDS ORDERED: dexameTHASONE 4 MG/ML 1ML VIAL (J1100) As Ordered ONE (08:35)
[2019-04-23] MEDS ORDERED: NEOSTIGMINE 10 MG/10 ML VIAL (J2710) As Ordered ONE (11:35)
[2019-04-23] MEDS ORDERED: GLYCOPYRROLATE INJ 0.2 MG/ML 2 ML VIAL As Ordered ONE (11:35)
[2019-04-23] MEDS ORDERED: ACETAMINOPHEN 1000MG 100ML IV BTL (OFIRMEV) (J0131 PER 10MG) As Ordered ONE (11:35)
[2019-04-23] MEDS ORDERED: ONDANSETRON 4MG/2ML VIAL (J2405) As Ordered ONE (11:36)
[2019-04-23] MEDS ORDERED: SUGAMMADEX SODIUM 500 MG/5 ML VIAL (BRIDION) As Ordered ONE (12:09)
[2019-04-23] MEDS ORDERED: NORC1TAB7 PO (12:36)
[2019-04-23] MEDS ORDERED: PERCOCET 5MG/325MG TAB PO PRN (13:00)
[2019-04-23] MEDS ORDERED: NORCO, ANEXSIA 5/325MG TABLET (HYDROcodone/ACETAMINOPHEN) PO PRN (13:00)
[2019-04-23] MEDS ORDERED: ACETAMINOPHEN TAB 650MG DOSE (2X325MG) PO PRN (13:00)
[2019-04-23] MEDS ORDERED: ONDANSETRON 4MG/2ML VIAL (J2405) IV PRN (13:00)
[2019-04-23] MEDS ORDERED: LR 1,000 ML IV SCH (13:00)
[2019-04-23] MEDS ORDERED: MEPERIDINE INJ 25 MG/ML VIAL (J2175) IV PRN (13:00)
[2019-04-23] MEDS ORDERED: fentaNYL 100 MCG/2 ML INJECTION (J3010) IV PRN (13:00)
[2019-04-23] MEDS ORDERED: METOCLOPRAMIDE INJ 10MG/2ML VIAL (J2765) IV PRN (13:00)
[2019-04-23] MEDS ORDERED: oxyCODONE 5MG TAB As Ordered ONE (13:04)
[2019-04-23] MEDS ORDERED: oxyCODONE 5MG TAB PO PRN (13:15)
[2019-04-23 13:40] VITALS: BP 151/70
--- NOTE | 2019-04-27 11:35 | RO ---
DATE OF PROCEDURE: 04/23/2019 PREOPERATIVE DIAGNOSIS: Cholelithiasis with gallstone pancreatitis. POSTOPERATIVE DIAGNOSIS: Cholelithiasis with gallstone pancreatitis with abdominal adhesions. PROCEDURE PERFORMED: Robotic-assisted laparoscopic cholecystectomy with lysis of adhesions. SURGEON: Dr. Yusuf Spencer. HOG COUNTER: SUMIT Lemus who assisted in placement of the ports, change of instruments and adjustment of the robotic arms during the procedure as well as closure of the incisions. ANESTHESIA: General. INDICATIONS FOR PROCEDURE: The patient is a 73-year-old man who had recently been treated for gallstone pancreatitis. He had an endoscopic retrograde cholangiopancreatography (ERCP) and is now for a robotic-assisted laparoscopic cholecystectomy. OPERATIVE PROCEDURE: The patient was brought to the operating room and placed on the table in a supine position. The patient was placed under general endotracheal anesthesia and the patient's abdomen was prepped and draped in a sterile fashion. 0.25% Marcaine was utilized at all trocar sites. An initial entry in the left upper quadrant was accomplished with a Veress needle. After positive hanging drop test, the abdomen was insufflated with carbon dioxide gas. A robotic port was placed over the scope and advanced through the abdominal wall without difficulty. Initial examination showed some adhesions of the omentum to the falciform ligament, particularly on the right side and extending out onto the anterior abdominal wall. There was an area where a portion of the liver was also quite adherent to the anterior abdominal wall. The liver itself appeared normal. There was abundant fibrofatty tissue in the upper abdomen. Three additional 8 mm ports were placed just above the umbilicus in the right lower quadrant medially and in the lateral right lower quadrant. The patient was tilted to a reverse Trendelenburg position and rolled to the left. The robot was brought into position and the camera port was docked. Targeting took place and the additional arms were then also docked. A hook cautery was placed in arm four with a forced bipolar in arm two and a grasping retractor in arm one. I then moved to the control console and proceeded with the robotic portion of the procedure. Initially, the adhesions of the omentum and liver were dissected from the anterior abdominal wall and falciform ligament using cautery dissection. This greatly improved the exposure of the edge of the liver and right upper quadrant. The gallbladder was identified. There appeared to be what seems to be a cystic area within the fundus of the gallbladder. The gallbladder was grasped and elevated. This elevated the edge of the liver and dissection was begun in the region of the gallbladder neck. The cystic duct and cholecystic artery were both clearly identified and dissected free. Both structures were doubly clipped with hemoclips and divided with scissors. The dissection then proceeded to free the gallbladder from the gallbladder bed using cautery dissection. There was minimal blood loss. The gallbladder was freed completely and then placed within an Endopouch inserted through one of the robotic ports. The pouch was grasped with a hand instrument through the supraumbilical site. The robot was then undocked. The patient was returned to a flat position. The abdomen was deflated and the trocars were all removed. The gallbladder was recovered through the supraumbilical site after extending the incision slightly. The fascia was then closed with interrupted simple sutures of #2-0 Vicryl. Additional local anesthesia was infiltrated around all the trocar sites. The skin incisions were then closed with buried Vicryl and Steri-Strips. Light dressings were applied. The gallbladder was sent for permanent pathology. The patient tolerated the procedure well without apparent complication. He was awakened in the operating room, extubated and moved to the recovery room in stable condition.
== END 2019-04-23 14:37 | disposition home or self-care (01) ==
LOC: M SDC 08:32
PROVIDERS: ATTEND Surgery
DX: K80.10 Calculus of gallbladder with chronic cholecystitis without obstruction (principal); G47.30 Sleep apnea, unspecified; I10 Essential (primary) hypertension; N40.0 Benign prostatic hyperplasia without lower urinary tract symptoms; Z87.891 Personal history of nicotine dependence; Z79.899 Other long term (current) drug therapy
CPT/HCPCS: 47562; 88304; J0131; J1100; J2250; J2405; J3010

== ENCOUNTER → 2019-07-07 | Outpatient (REF) | payer OTHER, MEDICARE ==
[~2019-07-07] MED LIST changes: -BUPIVACAINE HCL 0.25% 30 ML VIAL As Ordered ONE; -LR 1,000 ML IV SCH; +NORC1TAB7 PO; +SIMV10TA2 PO; -SIMV10TA21 PO
[2019-07-07 18:00] LABS: APPEARANCE, URINE CLEAR (CLEAR); BACTERIA, URINE AUTO NEGATIVE (NEGATIVE); BILIRUBIN, URINE AUTO NEGATIVE (NEGATIVE); BLOOD, URINE BLOOD NEGATIVE (NEGATIVE); CALCIUM OXALATE CRYSTALS SMALL; COLOR, URINE YELLOW (YELLOW); GLUCOSE, URINE (UA) AUTO NEGATIVE (NEGATIVE); KETONE, URINE AUTO TRACE mg/dL (NEGATIVE); LEUKOCYTE ESTERASE, URINE AUTO NEGATIVE (NEGATIVE); MUCUS, URINE SMALL (NEGATIVE); NITRITE, URINE AUTO NEGATIVE (NEGATIVE); PROTEIN, URINE AUTO NEGATIVE (NEGATIVE); RBC, URINE AUTO 0 /HPF (0-3); SPECIFIC GRAVITY URINE AUTO 1.026 (1.002-1.035); SQUAMOUS EPITHELIAL CELL UR AU 0 /HPF (0-6); UROBILINOGEN, URINE AUTO 0.2 mg/dL (0.0-2.0); WBC, URINE AUTO 0 /HPF (0-3)
== END ==
LOC: M SMT 17:24
PROVIDERS: ATTEND Nurse Practitioner Family
DX: N40.1 Benign prostatic hyperplasia with lower urinary tract symptoms (principal)
CPT/HCPCS: 51798; 81001; 87086; G0463

== ENCOUNTER → 2019-10-02 | Outpatient (REF) | payer MEDICARE ==
[~2019-10-02] MED LIST changes: -SIMV10TA2 PO; +SIMV10TA21 PO
== END ==
LOC: M LABSMT 12:42
PROVIDERS: ATTEND Nurse Practitioner Family
DX: Z12.5 Encounter for screening for malignant neoplasm of prostate (principal)

== ENCOUNTER → 2022-03-01 | Outpatient (CLI) | payer MEDICARE ==
[~2022-03-01] MED LIST changes: +AMLO1TAB24 PO; -AMLO5TAB6 PO
== END ==
LOC: M PLAIMG 10:40
PROVIDERS: ATTEND Otolaryngology
DX: H90.3 Sensorineural hearing loss, bilateral (principal)

== ENCOUNTER → 2022-03-23 | Outpatient (REF) | payer MEDICARE ==
[2022-03-23 13:38] LABS: APPEARANCE, URINE CLEAR (CLEAR); BACTERIA, URINE AUTO NEGATIVE (NEGATIVE); BILIRUBIN, URINE AUTO NEGATIVE (NEGATIVE); BLOOD, URINE BLOOD NEGATIVE (NEGATIVE); COLOR, URINE YELLOW (YELLOW); GLUCOSE, URINE (UA) AUTO 3+ mg/dL (NEGATIVE); KETONE, URINE AUTO NEGATIVE (NEGATIVE); LEUKOCYTE ESTERASE, URINE AUTO NEGATIVE (NEGATIVE); MUCUS, URINE SMALL (NEGATIVE); NITRITE, URINE AUTO NEGATIVE (NEGATIVE); PROTEIN, URINE AUTO NEGATIVE (NEGATIVE); RBC, URINE AUTO 0 /HPF (0-3); SPECIFIC GRAVITY URINE AUTO 1.028 (1.002-1.035); SQUAMOUS EPITHELIAL CELL UR AU 0 /HPF (0-6); UROBILINOGEN, URINE AUTO 0.2 mg/dL (0.0-2.0); WBC, URINE AUTO 0 /HPF (0-3)
== END ==
LOC: M SMT 13:04
PROVIDERS: ATTEND Urology
DX: R35.0 Frequency of micturition (principal); R39.15 Urgency of urination

== ENCOUNTER → 2022-04-12 | Outpatient (REF) | payer MEDICARE | LOC: M SMT 16:53 | PROVIDERS: ATTEND Urology | DX: R35.0 Frequency of micturition (principal) ==

== ENCOUNTER → 2022-04-23 | Outpatient (REF) | payer MEDICARE | LOC: M LAB REF 19:41 | PROVIDERS: ATTEND Nurse Practitioner Family | DX: L03.90 Cellulitis, unspecified (principal) ==

== ENCOUNTER → 2022-06-01 | Outpatient (CLI) | payer MEDICARE ==
[~2022-06-01] MED LIST changes: +CENTCHW3 PO; +CIPR-249 PO; +ECOT81TA5 PO; +FLOM0.4C39 PO; +HYDR-3490 PO; +JARD1TAB PO; +PANT20TA6 PO; +ROSU20TA5 PO
== END ==
LOC: M CLY 08:51
PROVIDERS: ATTEND Urology
DX: Z01.818 Encounter for other preprocedural examination (principal); N40.1 Benign prostatic hyperplasia with lower urinary tract symptoms

== ENCOUNTER → 2022-06-01 | Outpatient (REF) | payer MEDICARE ==
[~2022-06-01] MED LIST changes: -CIPR-249 PO
[2022-06-01 12:28] LABS: HEMATOCRIT 41.1 % (42.0-52.0); HEMOGLOBIN 12.8 g/dl (13.5-17.5); MEAN CORPUSCULAR HEMOGLOBIN 26.5 pg (27.0-33.0); MEAN CORPUSCULAR HGB CONC 31.1 g/dl (32.0-36.5); MEAN CORPUSCULAR VOLUME 85.1 fl (80.0-96.0); PLATELET COUNT, AUTOMATED 182 10^3/uL (150-450); RED BLOOD COUNT 4.83 10^6/uL (4.30-6.10)
[2022-06-01 12:39] LABS: INR 0.97; PROTHROMBIN TIME 13.3 SECONDS (12.7-14.5)
[2022-06-01 12:40] LABS: PARTIAL THROMBOPLASTIN TIME 32.8 SECONDS (25.9-37.0)
[2022-06-01 13:28] LABS: BLOOD UREA NITROGEN 20 MG/DL (7-18); CALCIUM LEVEL 9.3 MG/DL (8.8-10.2); CARBON DIOXIDE LEVEL 29 MEQ/L (21-32); CHLORIDE LEVEL 104 MEQ/L (98-107); CREATININE FOR GFR 0.86 MG/DL (0.70-1.30); GLOMERULAR FILTRATION RATE > 60.0 (>42); GLUCOSE, FASTING 120 MG/DL (70-100); POTASSIUM SERUM 3.7 MEQ/L (3.5-5.1); SODIUM LEVEL 139 MEQ/L (136-145)
== END ==
LOC: M LABSMT 08:48
PROVIDERS: ATTEND Urology
DX: Z01.818 Encounter for other preprocedural examination (principal); N39.0 Urinary tract infection, site not specified; N40.1 Benign prostatic hyperplasia with lower urinary tract symptoms; Z79.01 Long term (current) use of anticoagulants

== ENCOUNTER → 2022-06-06 | Outpatient (CLI) | payer MEDICARE | LOC: M LABSMTC 10:14 | PROVIDERS: ATTEND Anesthesiology | DX: Z01.818 Encounter for other preprocedural examination (principal); Z11.52 Encounter for screening for COVID-19 ==

== ENCOUNTER 2022-06-11 08:55 | Day surgery (SDC) | payer MEDICARE ==
[~2022-06-11] VITALS: Ht 170.2 cm; Wt 122.4 kg
[~2022-06-11 08:55] MED LIST changes: +ceFAZolin SOD 1 GM in D5W MINI-BAG PLUS 50 ML IV ONE; +ceFAZolin SOD 2 GM in IV 1 EA IV ONE
[2022-06-11] MEDS ORDERED: LR 1,000 ML IV SCH ×2 (09:10→11:50)
[2022-06-11] MEDS ORDERED: RAMI1CAP26 PO (09:11)
[2022-06-11] MEDS ORDERED: CIPR-249 PO (10:45)
[2022-06-11] MEDS ORDERED: LIDOCAINE 2% 100MG/5ML SDV (FOR ANES.) As Ordered ONE (10:58)
[2022-06-11] MEDS ORDERED: propofoL 200 MG/20 ML VIAL As Ordered ONE (10:58)
[2022-06-11] MEDS ORDERED: MIDAZOLAM INJ 2MG/2ML VIAL (J2250 PER 1MG) As Ordered ONE (10:58)
[2022-06-11] MEDS ORDERED: ACETAMINOPHEN 1000MG 100ML IV BTL (OFIRMEV) (J0131 PER 10MG) As Ordered ONE (10:58)
[2022-06-11] MEDS ORDERED: fentaNYL 100 MCG/2 ML INJECTION As Ordered ONE ×2 (10:58→11:23)
[2022-06-11] MEDS ORDERED: FUROSEMIDE 100MG/10ML VIAL (J1940) As Ordered ONE (11:34)
[2022-06-11] MEDS ORDERED: ONDANSETRON 4MG 2ML VIAL IV PRN (11:50)
[2022-06-11] MEDS ORDERED: fentaNYL 100 MCG/2 ML INJECTION IV PRN (11:50)
[2022-06-11] MEDS ORDERED: oxyCODONE 5MG TAB PO PRN (11:50)
[2022-06-11] MEDS ORDERED: MORPHINE 2 MG/ML 1ML VIAL IV PRN (11:50)
[2022-06-11] MEDS ORDERED: ACETAMINOPHEN TAB 650MG DOSE (2X325MG) PO PRN (12:20)
[2022-06-11 12:39] VITALS: BP 157/77
== END 2022-06-11 14:10 | disposition home or self-care (01) ==
LOC: M SDC 08:55
PROVIDERS: ATTEND Urology
DX: N40.1 Benign prostatic hyperplasia with lower urinary tract symptoms (principal); I10 Essential (primary) hypertension; K21.9 Gastro-esophageal reflux disease without esophagitis; E78.5 Hyperlipidemia, unspecified; Z95.810 Presence of automatic (implantable) cardiac defibrillator; Z95.0 Presence of cardiac pacemaker; Z79.899 Other long term (current) drug therapy; G47.33 Obstructive sleep apnea (adult) (pediatric); F17.200 Nicotine dependence, unspecified, uncomplicated
CPT/HCPCS: 52601; J0131; J0690; J1940; J2250; J3010

== ENCOUNTER → 2022-06-27 | Outpatient (REF) | payer MEDICARE ==
[~2022-06-27] MED LIST changes: +CIPR-249 PO; -ceFAZolin SOD 1 GM in D5W MINI-BAG PLUS 50 ML IV ONE; -ceFAZolin SOD 2 GM in IV 1 EA IV ONE
== END ==
LOC: M SMT 17:00
PROVIDERS: ATTEND Urology
DX: N39.0 Urinary tract infection, site not specified (principal)

== ENCOUNTER → 2022-07-16 | Outpatient (REF) | payer MEDICARE | LOC: M SMT 17:03 | PROVIDERS: ATTEND Urology | DX: R35.0 Frequency of micturition (principal) ==

== ENCOUNTER → 2022-07-23 | Outpatient (REF) | payer MEDICARE ==
[2022-07-23 18:47] LABS: HEMATOCRIT 36.9 % (42.0-52.0); HEMOGLOBIN 11.7 g/dl (13.5-17.5); MEAN CORPUSCULAR HEMOGLOBIN 27.1 pg (27.0-33.0); MEAN CORPUSCULAR HGB CONC 31.7 g/dl (32.0-36.5); MEAN CORPUSCULAR VOLUME 85.4 fl (80.0-96.0); PLATELET COUNT, AUTOMATED 174 10^3/uL (150-450); RED BLOOD COUNT 4.32 10^6/uL (4.30-6.10); WHITE BLOOD COUNT 5.7 10^3/uL (4.0-10.0)
[2022-07-23 19:09] LABS: BLOOD UREA NITROGEN 16 MG/DL (7-18); CALCIUM LEVEL 9.3 MG/DL (8.8-10.2); CARBON DIOXIDE LEVEL 28 MEQ/L (21-32); CHLORIDE LEVEL 103 MEQ/L (98-107); CREATININE FOR GFR 0.98 MG/DL (0.70-1.30); GLOMERULAR FILTRATION RATE > 60.0 (>42); GLUCOSE, FASTING 127 MG/DL (70-100); SODIUM LEVEL 136 MEQ/L (136-145)
== END ==
LOC: M SFHCCLAY 11:15
PROVIDERS: ATTEND Nurse Practitioner Family
DX: K62.5 Hemorrhage of anus and rectum (principal)

== ENCOUNTER → 2022-07-26 | Outpatient (REF) | payer MEDICARE | LOC: M SFHCCLAY 10:09 | PROVIDERS: ATTEND Nurse Practitioner Family | DX: K62.5 Hemorrhage of anus and rectum (principal) ==

== ENCOUNTER → 2022-09-04 | Outpatient (REF) | payer MEDICARE ==
[2022-09-04 18:18] LABS: APPEARANCE, URINE MANUAL CLEAR (CLEAR); COLOR, URINE MANUAL YELLOW (YELLOW)
[2022-09-04 18:19] LABS: BILIRUBIN, URINE MANUAL NEGATIVE (NEGATIVE); GLUCOSE, URINE (UA) MANUAL 4+(1000 MG/DL) mg/dL (NEGATIVE); KETONE, URINE MANUAL NEGATIVE (NEGATIVE); LEUKOCYTE ESTERASE, URINE MAN NEGATIVE (NEGATIVE); NITRITE, URINE MANUAL NEGATIVE (NEGATIVE); PROTEIN, URINE MANUAL NEGATIVE (NEGATIVE); UROBILINOGEN, URINE MANUAL NORMAL (NORMAL)
[2022-09-04 18:20] LABS: BLOOD URINE MANUAL POSITIVE (NEGATIVE)
[2022-09-04 18:59] LABS: BACTERIA, URINE NONE SEEN; HYALINE CAST, URINE NONE SEEN /lpf (0-1); SQUAMOUS EPITHELIAL CELL URINE NONE SEEN /hpf (SMALL AMT)
== END ==
LOC: M SMT 16:52
PROVIDERS: ATTEND Urology
DX: R35.0 Frequency of micturition (principal); N39.41 Urge incontinence

== ENCOUNTER → 2022-10-09 | Outpatient (CLI) | payer MEDICARE | LOC: M LABSMTC 09:56 | PROVIDERS: ATTEND Orthopaedic Surgery | DX: Z11.52 Encounter for screening for COVID-19 (principal) ==

== ENCOUNTER → 2023-01-28 | Outpatient (REF) | payer MEDICARE ==
[2023-01-28 11:19] LABS: BASO # 0.1 10^3/uL (0.0-0.2); BASO % 1.5 % (0.0-1.0); EOS # 0.4 10^3/uL (0.0-0.5); EOS % 6.6 % (0.0-3.0); HEMATOCRIT 37.5 % (42.0-52.0); HEMOGLOBIN 12.4 g/dl (13.5-17.5); LYMPH # 1.5 10^3/uL (1.5-5.0); MEAN CORPUSCULAR HEMOGLOBIN 29.5 pg (27.0-33.0); MEAN CORPUSCULAR HGB CONC 33.1 g/dl (32.0-36.5); MEAN CORPUSCULAR VOLUME 89.3 fl (80.0-96.0); MONO # 0.6 10^3/uL (0.0-0.8); MONO % 11.3 % (2.0-8.0); NEUTROPHILS # 2.9 10^3/uL (1.5-8.5); NEUTROPHILS % 53.4 % (36.0-66.0); PLATELET COUNT, AUTOMATED 157 10^3/uL (150-450); WHITE BLOOD COUNT 5.5 10^3/uL (4.0-10.0)
[2023-01-28 11:25] LABS: ALBUMIN 3.6 G/DL (3.2-5.2); ALKALINE PHOSPHATASE 99 U/L (46-116); ALT/SGPT 9 U/L (7.0-40); AST/SGOT < 8 U/L (<34); BILIRUBIN,TOTAL 0.8 MG/DL (0.3-1.2); BLOOD UREA NITROGEN 21 MG/DL (9-23); CARBON DIOXIDE LEVEL 30 MMOL/L (20-31); CHLORIDE LEVEL 106 MMOL/L (98-107); CHOLESTEROL LEVEL 104 MG/DL (<200); CHOLESTEROL RISK RATIO 2.08 (<5); CREATININE FOR GFR 0.92 MG/DL (0.70-1.30); GLOMERULAR FILTRATION RATE > 60.0 (>42); GLUCOSE, FASTING 107 MG/DL (74-106); HDL CHOLESTEROL 49.9 MG/DL (>40); LDL CHOLESTEROL 39.1 MG/DL (<100); NON-HDL-C 54.1 MG/DL; POTASSIUM SERUM 4.1 MMOL/L (3.5-5.1); SODIUM LEVEL 141 MMOL/L (136-145); TOTAL PROTEIN 6.3 G/DL (5.7-8.2); TRIGLYCERIDES LEVEL 75 MG/DL (<150)
[2023-01-28 11:27] LABS: FOLATE 20.55 NG/ML (>5.4); VITAMIN B12 LEVEL 404 PG/ML (211-911)
[2023-01-28 11:30] LABS: HEMOGLOBIN A1c 5.8 % (4.0-6.0)
== END ==
LOC: M SFHCCLAY 07:55
PROVIDERS: ATTEND Family Medicine
DX: R20.0 Anesthesia of skin (principal); R73.01 Impaired fasting glucose; E78.2 Mixed hyperlipidemia; I10 Essential (primary) hypertension

== ENCOUNTER → 2023-02-15 | Outpatient (REF) | payer MEDICARE ==
[2023-02-15 16:15] LABS: HEMATOCRIT 29.5 % (42.0-52.0); HEMOGLOBIN 9.5 g/dl (13.5-17.5); MEAN CORPUSCULAR HGB CONC 32.2 g/dl (32.0-36.5); MEAN CORPUSCULAR VOLUME 89.9 fl (80.0-96.0); PLATELET COUNT, AUTOMATED 153 10^3/uL (150-450); RED BLOOD COUNT 3.28 10^6/uL (4.30-6.10); WHITE BLOOD COUNT 8.1 10^3/uL (4.0-10.0)
== END ==
LOC: M LAB REF 15:10
PROVIDERS: ATTEND Physician Assistant
DX: D62 Acute posthemorrhagic anemia (principal)

== ENCOUNTER → 2025-05-27 | Outpatient (REF) | payer MEDICARE ==
[~2025-05-27] MED LIST changes: -FLOM0.4C39 PO; +RAMI10CA64 PO; -RAMI1CAP26 PO; -ROSU20TA5 PO; +ROSU20TA86 PO; +TAMS-18 PO
[2025-05-27 12:29] LABS: BASO # 0.1 10^3/uL (0.0-0.2); BASO % 1.0 % (0.0-1.0); EOS # 0.1 10^3/uL (0.0-0.5); EOS % 2.2 % (0.0-3.0); LYMPH # 1.4 10^3/uL (1.5-5.0); LYMPH % 24.7 % (24.0-44.0); MONO # 0.6 10^3/uL (0.0-0.8); MONO % 10.3 % (2.0-8.0); NEUTROPHILS # 3.6 10^3/uL (1.5-8.5); NEUTROPHILS % 61.5 % (36.0-66.0); PLATELET COUNT, AUTOMATED 149 10^3/uL (150-450)
[2025-05-27 12:36] LABS: ALT/SGPT 21 U/L (7.0-40); AST/SGOT 21 U/L (<34); CALCIUM LEVEL 9.2 MG/DL (8.3-10.6); CARBON DIOXIDE LEVEL 30 MMOL/L (20-31); CHLORIDE LEVEL 106 MMOL/L (98-107); CREATININE FOR GFR 0.81 MG/DL (0.70-1.30); GLOMERULAR FILTRATION RATE > 90.0 (>42); POTASSIUM SERUM 4.0 MMOL/L (3.5-5.1); SODIUM LEVEL 146 MMOL/L (136-145)
[2025-05-27 12:49] LABS: ESTIMATED AVERAGE GLUCOSE 126.0 MG/DL (60-110)
== END ==
LOC: M SFHCCLAY 08:32
PROVIDERS: ATTEND Family Medicine
DX: Z01.818 Encounter for other preprocedural examination (principal); I10 Essential (primary) hypertension; R73.01 Impaired fasting glucose